=== PATIENT | male | born 1990 | race Two or more races ===

== ENCOUNTER 2025-01-19 11:20 | Emergency (ER) | payer OTHER ==
[~2025-01-19] VITALS: Ht 180.3 cm; Wt 97.5 kg
[2025-01-19] MEDS ORDERED: ORPHENADRINE CITRATE 30 MG/ML AMPUL IM ONE (14:45)
[2025-01-19] MEDS ORDERED: ACETAMINOPHEN 500 MG GEL..CAP PO ONE (14:45)
[2025-01-19] MEDS ORDERED: DEXAMETHASONE SODIUM PHOSPHATE 4 MG/ML VIAL IM ONE (14:45)
[2025-01-19] MEDS ORDERED: KETOROLAC TROMETHAMINE 60 MG VIAL IM ONE (14:45)
[2025-01-19 14:58] VITALS: BP 124/82; O2SAT 99
[2025-01-19] MEDS ORDERED: HYDROCHLOROTHIA25 MG PO (14:59)
[2025-01-19] MEDS ORDERED: WELLBUTRIN XL300 MG PO (14:59)
[2025-01-19] MEDS ORDERED: SINGULAIR10 MG PO (14:59)
[2025-01-19] MEDS ORDERED: AMLODIPINE-OLM1 EAC3 PO (14:59)
[2025-01-19] MEDS ORDERED: ALL DAY ALLERGY10 M3 PO (14:59)
[2025-01-19] MEDS ORDERED: DIOVAN40 MG PO (14:59)
[2025-01-19] MEDS ORDERED: ATORVASTATIN CA10 MG PO (15:00)
[2025-01-19] MEDS ORDERED: LEXAPRO20 MG PO (15:00)
[2025-01-19] MEDS ORDERED: NORFLEX100MG PO (18:50)
[2025-01-19] MEDS ORDERED: PEPCID AC20 MG PO (18:50)
[2025-01-19] MEDS ORDERED: KETO10TA2 PO (18:50)
== END 2025-01-19 19:23 | disposition home or self-care (01) ==
LOC: ER 11:20
DX: S39.82XA Other specified injuries of lower back, initial encounter (principal); S89.82XA Other specified injuries of left lower leg, initial encounter; W19.XXXA Unspecified fall, initial encounter; Y93.89 Activity, other specified; Y92.59 Other trade areas as the place of occurrence of the external cause; Y99.8 Other external cause status; I10 Essential (primary) hypertension